=== PATIENT | male | born 1960 | race African-American/Black ===

== ENCOUNTER 2020-03-25 11:45 | Inpatient (IN) ==
[2020-03-25] MEDS ORDERED: MIDAZOLAM 2 MG/2 ML VIAL IV STA (12:35)
[2020-03-25] MEDS ORDERED: THIAMINE 200 MG/2 ML VIAL IV STA (12:45)
[2020-03-25] MEDS ORDERED: LACTATED RINGERS 1,000 ML IV ONE (12:46)
[2020-03-25] MEDS ORDERED: ONDANSETRON 4 MG/2 ML VIAL IV STA (12:46)
[2020-03-25 12:50] LABS: ABG Base Excess 0.9 MMOL/L (-2.5-2.5); ABG HCO3 25.1 MMOL/L (20-26); ABG PCO2 34.2 MM HG (35-48); ABG PH 7.457 (7.35-7.45); ABG PO2 79.7 MM HG (80-95); ABG TCO2 20.9 MMOL/L (23-27)
[2020-03-25 12:56] LABS: Basophils % 0.4 % (0.0-0.8); Eosinophils % 0.1 % (0.00-10.9); Hematocrit 40.1 VOL% (42.0-52.0); Hemoglobin 13.4 GM/DL (14.0-18.0); Immature Granulocytes % 0.7 %; Immature Granulocytes Absolute 0.05 #; Lymphocytes # 0.6 10*3/uL (1.4-4.0); Lymphocytes % 8.1 % (21.2-54.2); Mean Corpuscular HGB Conc 33.4 GM/DL (32-36); Mean Corpuscular Volume 90.9 FL (87-102); Mean Platelet Volume 10.7 FL (9.6-12.0); Monocytes % 9.3 % (1.7-12.7); Neutrophils % 81.4 % (38.7-73.9); Platelet Count 161 T/CUMM (130-400); Red Blood Count 4.41 MC/CUMM (3.8-5.5); Red Cell Distribution Width 12.8 % (9.3-17.3); White Blood Count 7.4 T/CUMM (4-12)
[2020-03-25 13:11] LABS: INR 1.1; PT Patient Result 11.5 SECS (9.8-11.9); Partial Thromboplastin Time 25.4 SECS (23.9-33.8)
[2020-03-25 13:24] LABS: Calcium 8.6 MG/DL (8.5-10.1); Osmolality,Calculated 278.1 MOS/KG (273-304); Potassium 3.8 MMOL/L (3.5-5.1); Total Protein 7.3 G/DL (6.4-8.3)
[2020-03-25 13:45] LABS: Lymphocytes 8 % (20-55); Platelet Estimate Adequate; Segmented Neutrophils 86 % (50-85); Total Cells Counted 100
[2020-03-25] MEDS ORDERED: LORazepam 2 MG/1 ML VIAL IV STA (14:02)
[2020-03-25 14:07] LABS: Bilirubin,Urine Negative (Negative); Blood, Urine Small mg/dL (Negative); Glucose,Urine (UA) >=500 mg/dL (Negative); Hyaline Casts,Urine 6 /LPF (0-3); Ketones,Urine Negative (Negative); Nitrite,Urine Negative (Negative); Protein,Urine Negative; RBC,Urine 1 /HPF (0-4); Urine Appearance CLEAR (Clear); Urine Color Yellow (Yellow); WBC,Urine 1 /HPF (0-6)
[2020-03-25] MEDS ORDERED: niCARdipine INJ 25 MG in SODIUM CHLORIDE 0.9% 240 ML IV PRN (14:59)
[2020-03-25] MEDS: SODIUM CHLORIDE 0.9% 1,000 ML IV SCH ×2 (16:25→23:27)
[2020-03-25] MEDS: MAGNESIUM SULF RIDER 4 GM in PREMIX 1 EACH IV SCH ×2 (17:41→21:07)
[2020-03-25] MEDS: LABETALOL 20 MG/4 ML SYRINGE IV PRN (20:08)
[2020-03-25] MEDS: ROSUVASTATIN 20 MG TABLET PO SCH (20:24)
[2020-03-25] MEDS: DIAZEPAM 5 MG TABLET PO PRN (20:24)
[2020-03-25] MEDS: ACETAMINOPHEN 325 MG TABLET PO PRN (23:27)
[2020-03-26] MEDS: MAGNESIUM SULF RIDER 4 GM in PREMIX 1 EACH IV SCH (01:13)
[2020-03-26 06:40] LABS: Basophils # 0.1 10*3/uL (0.0-0.2); Basophils % 0.9 % (0.0-0.8); Eosinophils # 0.1 10*3/uL (0.0-0.87); Eosinophils % 1.1 % (0.00-10.9); Hematocrit 40.4 VOL% (42.0-52.0); Hemoglobin 13.5 GM/DL (14.0-18.0); Immature Granulocytes % 0.4 %; Immature Granulocytes Absolute 0.02 #; Lymphocytes # 0.7 10*3/uL (1.4-4.0); Lymphocytes % 12.5 % (21.2-54.2); Mean Corpuscular HGB Conc 33.4 GM/DL (32-36); Mean Corpuscular Volume 91.6 FL (87-102); Mean Platelet Volume 11.4 FL (9.6-12.0); Monocytes % 12.1 % (1.7-12.7); Platelet Count 153 T/CUMM (130-400); Red Blood Count 4.41 MC/CUMM (3.8-5.5); Red Cell Distribution Width 12.9 % (9.3-17.3); White Blood Count 5.4 T/CUMM (4-12)
[2020-03-26 07:10] LABS: Alanine Aminotransferase 30 U/L (16-61); Albumin 2.7 G/DL (3.4-5.0); Alkaline Phosphatase 100 U/L (45-117); Aspartate Amino Transferase 38 U/L (0-37); Blood Urea Nitrogen 25 MG/DL (7-18); Calcium 8.5 MG/DL (8.5-10.1); Carbon Dioxide 22 MMOL/L (21-32); Estimated Glom Filtration Rate 66 ML/MIN; Glucose 93 MG/DL (74-106); Osmolality,Calculated 269.4 MOS/KG (273-304); Potassium 3.4 MMOL/L (3.5-5.1); Sodium 133 MMOL/L (136-145); Total Protein 7.6 G/DL (6.4-8.3); Troponin I < 0.015 NG/ML (0.00-0.045)
[2020-03-26] MEDS: SODIUM CHLORIDE 0.9% 1,000 ML IV SCH (12:33)
[2020-03-26] MEDS: POTASSIUM CHLORIDE 20 MEQ TABLET PO SCH ×3 (12:33→16:22)
[2020-03-26] MEDS: ASPIRIN 325 MG TABLET PO SCH (14:17)
[2020-03-26 15:49] LABS: Risk Ratio 2.8; VLDL CHOLESTEROL 20.2 MG/DL
[2020-03-26] MEDS: ROSUVASTATIN 20 MG TABLET PO SCH (21:24)
[2020-03-27 06:08] LABS: Basophils # 0.1 10*3/uL (0.0-0.2); Basophils % 1.1 % (0.0-0.8); Eosinophils # 0.1 10*3/uL (0.0-0.87); Eosinophils % 2.3 % (0.00-10.9); Hematocrit 35.9 VOL% (42.0-52.0); Hemoglobin 11.7 GM/DL (14.0-18.0); Immature Granulocytes % 0.6 %; Immature Granulocytes Absolute 0.03 #; Lymphocytes # 0.6 10*3/uL (1.4-4.0); Mean Corpuscular HGB Conc 32.6 GM/DL (32-36); Mean Corpuscular Volume 93.2 FL (87-102); Mean Platelet Volume 11.7 FL (9.6-12.0); Monocytes % 12.4 % (1.7-12.7); Neutrophils % 71.6 % (38.7-73.9); Platelet Count 154 T/CUMM (130-400); Red Blood Count 3.85 MC/CUMM (3.8-5.5); Red Cell Distribution Width 13.1 % (9.3-17.3); White Blood Count 5.3 T/CUMM (4-12)
[2020-03-27 06:27] LABS: Calcium 8.1 MG/DL (8.5-10.1); Osmolality,Calculated 280.5 MOS/KG (273-304); Potassium 3.6 MMOL/L (3.5-5.1)
[2020-03-27] MEDS: amLODIPine 5 MG TABLET PO SCH (15:05)
[2020-03-27] MEDS: ASPIRIN 325 MG TABLET PO SCH (15:05)
[2020-03-27] MEDS: ROSUVASTATIN 20 MG TABLET PO SCH (20:46)
[2020-03-28 05:52] LABS: Basophils # 0.1 10*3/uL (0.0-0.2); Basophils % 0.9 % (0.0-0.8); Eosinophils # 0.1 10*3/uL (0.0-0.87); Eosinophils % 2.1 % (0.00-10.9); Hematocrit 34.2 VOL% (42.0-52.0); Hemoglobin 11.6 GM/DL (14.0-18.0); Immature Granulocytes % 0.2 %; Immature Granulocytes Absolute 0.01 #; Lymphocytes # 0.9 10*3/uL (1.4-4.0); Lymphocytes % 15.9 % (21.2-54.2); Mean Corpuscular HGB Conc 33.9 GM/DL (32-36); Mean Corpuscular Volume 90.2 FL (87-102); Monocytes % 16.5 % (1.7-12.7); Neutrophils % 64.4 % (38.7-73.9); Platelet Count 155 T/CUMM (130-400); Red Blood Count 3.79 MC/CUMM (3.8-5.5); Red Cell Distribution Width 13.1 % (9.3-17.3); White Blood Count 5.3 T/CUMM (4-12)
[2020-03-28 06:11] LABS: Calcium 8.6 MG/DL (8.5-10.1); Osmolality,Calculated 275.7 MOS/KG (273-304); Potassium 3.5 MMOL/L (3.5-5.1)
[2020-03-28 06:20] LABS: Eosinophils 1 % (0-10); Lymphocytes 14 % (20-55); Platelet Estimate Adequate; Segmented Neutrophils 72 % (50-85); Total Cells Counted 100
[2020-03-28] MEDS: amLODIPine 5 MG TABLET PO SCH (09:11)
[2020-03-28] MEDS ORDERED: amLODIPine 5 MG TABLET PO ONE (11:22)
[2020-03-28] MEDS: ASPIRIN 325 MG TABLET PO SCH (16:20)
[2020-03-28] MEDS: ROSUVASTATIN 20 MG TABLET PO SCH (20:41)
[2020-03-29] MEDS: LABETALOL 20 MG/4 ML SYRINGE IV PRN ×2 (05:16→20:29)
[2020-03-29 06:08] LABS: Basophils # 0.1 10*3/uL (0.0-0.2); Basophils % 0.8 % (0.0-0.8); Eosinophils # 0.2 10*3/uL (0.0-0.87); Eosinophils % 2.6 % (0.00-10.9); Hematocrit 36.2 VOL% (42.0-52.0); Hemoglobin 11.8 GM/DL (14.0-18.0); Immature Granulocytes % 0.2 %; Immature Granulocytes Absolute 0.01 #; Lymphocytes # 0.8 10*3/uL (1.4-4.0); Lymphocytes % 13.6 % (21.2-54.2); Mean Corpuscular HGB Conc 32.6 GM/DL (32-36); Mean Corpuscular Volume 93.8 FL (87-102); Mean Platelet Volume 11.7 FL (9.6-12.0); Monocytes % 15.6 % (1.7-12.7); Neutrophils % 67.2 % (38.7-73.9); Platelet Count 180 T/CUMM (130-400); Red Blood Count 3.86 MC/CUMM (3.8-5.5); Red Cell Distribution Width 13.2 % (9.3-17.3); White Blood Count 6.1 T/CUMM (4-12)
[2020-03-29 06:39] LABS: Calcium 8.7 MG/DL (8.5-10.1); Osmolality,Calculated 275.7 MOS/KG (273-304); Potassium 3.4 MMOL/L (3.5-5.1)
[2020-03-29 06:47] LABS: Eosinophils 3 % (0-10); Hypochromasia 1+; Lymphocytes 14 % (20-55); Segmented Neutrophils 72 % (50-85); Total Cells Counted 100
[2020-03-29 06:48] LABS: Microcytosis Slight; Platelet Estimate Adequate
[2020-03-29] MEDS ORDERED: MAGNESIUM SULF RIDER 4 GM in PREMIX 1 EACH IV PRN (07:25)
[2020-03-29] MEDS: amLODIPine 10 MG TABLET PO SCH (09:16)
[2020-03-29] MEDS: MAGNESIUM SULF RIDER 2 GM in PREMIX 1 EACH IV PRN (09:17)
[2020-03-29] MEDS: POTASSIUM CHLORIDE 20 MEQ TABLET PO PRN (15:34)
[2020-03-29] MEDS: CLOPIDOGREL 75 MG TABLET PO SCH (15:34)
[2020-03-29] MEDS: ASPIRIN 325 MG TABLET PO SCH (15:35)
[2020-03-29] MEDS: ROSUVASTATIN 20 MG TABLET PO SCH (20:24)
[2020-03-29] MEDS: ACETAMINOPHEN 325 MG TABLET PO PRN (21:57)
[2020-03-29] MEDS: DIAZEPAM 5 MG TABLET PO PRN (23:30)
[2020-03-30 05:42] LABS: Basophils # 0.1 10*3/uL (0.0-0.2); Basophils % 0.8 % (0.0-0.8); Eosinophils # 0.1 10*3/uL (0.0-0.87); Eosinophils % 1.5 % (0.00-10.9); Hematocrit 36.5 VOL% (42.0-52.0); Hemoglobin 12.6 GM/DL (14.0-18.0); Immature Granulocytes % 0.5 %; Immature Granulocytes Absolute 0.03 #; Lymphocytes # 0.9 10*3/uL (1.4-4.0); Lymphocytes % 14.2 % (21.2-54.2); Mean Corpuscular HGB Conc 34.5 GM/DL (32-36); Mean Corpuscular Volume 89.7 FL (87-102); Mean Platelet Volume 11.5 FL (9.6-12.0); Monocytes % 15.6 % (1.7-12.7); Neutrophils % 67.4 % (38.7-73.9); Platelet Count 201 T/CUMM (130-400); Red Blood Count 4.07 MC/CUMM (3.8-5.5); Red Cell Distribution Width 13.1 % (9.3-17.3); White Blood Count 6.5 T/CUMM (4-12)
[2020-03-30 06:02] LABS: Calcium 8.7 MG/DL (8.5-10.1); Osmolality,Calculated 270.2 MOS/KG (273-304); Potassium 3.6 MMOL/L (3.5-5.1)
[2020-03-30 06:09] LABS: Eosinophils 1 % (0-10); Lymphocytes 17 % (20-55); Platelet Estimate Adequate; Segmented Neutrophils 64 % (50-85); Total Cells Counted 100
[2020-03-30] MEDS: amLODIPine 10 MG TABLET PO SCH (08:09)
[2020-03-30] MEDS: CLOPIDOGREL 75 MG TABLET PO SCH (08:09)
[2020-03-30] MEDS: POTASSIUM CHLORIDE 20 MEQ TABLET PO PRN (08:10)
[2020-03-30] MEDS: MAGNESIUM SULF RIDER 2 GM in PREMIX 1 EACH IV PRN (08:10)
[2020-03-30] MEDS ORDERED: MAGNESIUM SULF RIDER 4 GM in PREMIX 1 EACH IV ONE (09:56)
[2020-03-30] MEDS: MULTIVITAMIN (BEROCCA) TABLET PO SCH (12:24)
[2020-03-30] MEDS: FOLIC ACID 1 MG TABLET PO SCH (12:24)
[2020-03-30] MEDS: THIAMINE 100 MG TABLET PO SCH (12:25)
[2020-03-30] MEDS: ASPIRIN 325 MG TABLET PO SCH (15:42)
[2020-03-30] MEDS: ROSUVASTATIN 20 MG TABLET PO SCH (20:59)
[2020-03-30] MEDS: METOPROLOL TARTRATE 25 MG TABLET PO SCH (21:04)
[2020-03-30] MEDS: ENOXAPARIN 40 MG/0.4 ML SYRINGE SUBCUT SCH (21:06)
[2020-03-31 06:55] LABS: Basophils # 0.1 10*3/uL (0.0-0.2); Basophils % 0.7 % (0.0-0.8); Eosinophils # 0.1 10*3/uL (0.0-0.87); Eosinophils % 1.3 % (0.00-10.9); Hematocrit 35.6 VOL% (42.0-52.0); Hemoglobin 12.4 GM/DL (14.0-18.0); Immature Granulocytes % 0.4 %; Immature Granulocytes Absolute 0.03 #; Lymphocytes # 0.8 10*3/uL (1.4-4.0); Mean Corpuscular HGB Conc 34.8 GM/DL (32-36); Mean Corpuscular Volume 89.2 FL (87-102); Mean Platelet Volume 11.9 FL (9.6-12.0); Monocytes % 19.9 % (1.7-12.7); Neutrophils % 66.7 % (38.7-73.9); Platelet Count 228 T/CUMM (130-400); Red Blood Count 3.99 MC/CUMM (3.8-5.5); Red Cell Distribution Width 13.2 % (9.3-17.3); White Blood Count 7.1 T/CUMM (4-12)
[2020-03-31 07:15] LABS: Eosinophils 1 % (0-10); Hypochromasia 1+; Lymphocytes 15 % (20-55); Microcytosis Slight; Platelet Estimate Adequate; Segmented Neutrophils 58 % (50-85); Total Cells Counted 100
[2020-03-31 07:16] LABS: Calcium 8.7 MG/DL (8.5-10.1); Osmolality,Calculated 274.8 MOS/KG (273-304); Potassium 3.6 MMOL/L (3.5-5.1)
[2020-03-31] MEDS: amLODIPine 10 MG TABLET PO SCH (08:25)
[2020-03-31] MEDS: POTASSIUM CHLORIDE 20 MEQ TABLET PO PRN (08:25)
[2020-03-31] MEDS: THIAMINE 100 MG TABLET PO SCH (08:25)
[2020-03-31] MEDS: FOLIC ACID 1 MG TABLET PO SCH (08:25)
[2020-03-31] MEDS: MULTIVITAMIN (BEROCCA) TABLET PO SCH (08:25)
[2020-03-31] MEDS: CLOPIDOGREL 75 MG TABLET PO SCH (08:25)
[2020-03-31] MEDS: METOPROLOL TARTRATE 25 MG TABLET PO SCH ×2 (08:26→20:27)
[2020-03-31] MEDS: ACETAMINOPHEN 325 MG TABLET PO PRN (15:47)
[2020-03-31] MEDS: ENOXAPARIN 40 MG/0.4 ML SYRINGE SUBCUT SCH ×2 (20:27→20:29)
[2020-03-31] MEDS: ROSUVASTATIN 20 MG TABLET PO SCH (20:27)
[2020-04-01 06:02] LABS: Osmolality,Calculated 265.5 MOS/KG (273-304)
[2020-04-01] MEDS ORDERED: HEPARIN/NACL 0.9% 2 UNITS/ML 500 ML IV ONE (08:40)
[2020-04-01] MEDS ORDERED: NITROGLYCERIN DRIP 50 MG/250 ML BOTTLE IV ONE (08:40)
[2020-04-01] MEDS ORDERED: PHENYLEPHRINE DRIP 20 MG/250 ML PREMIX IV ONE (08:40)
[2020-04-01] MEDS ORDERED: ROPIVACAINE 0.5% 30 ML VIAL ONE (09:15)
[2020-04-01] MEDS ORDERED: LIDOCAINE 2% 5 ML VIAL ONE ×2 (09:19→10:16)
[2020-04-01] MEDS ORDERED: fentaNYL 100 MCG/2 ML VIAL ONE (10:10)
[2020-04-01] MEDS ORDERED: propofoL 200 MG/20 ML VIAL IV ONE (10:15)
[2020-04-01] MEDS ORDERED: ETOMIDATE 40 MG/20 ML VIAL IV ONE (10:15)
[2020-04-01] MEDS ORDERED: ROCURONIUM 50 MG/5 ML VIAL IV ONE (10:16)
[2020-04-01] MEDS ORDERED: LIDOCAINE 1% 5 ML VIAL ONE (10:24)
[2020-04-01] MEDS ORDERED: HEPARIN 5,000 UNIT/1 ML VIAL ONE (10:37)
[2020-04-01] MEDS ORDERED: LIDOCAINE 1% 20 ML VIAL ONE (10:37)
[2020-04-01] MEDS ORDERED: SODIUM CHLORIDE 0.9% 1,000 ML IV SCH (11:00)
[2020-04-01] MEDS ORDERED: LACTATED RINGERS 1,000 ML IV SCH (11:00)
[2020-04-01] MEDS ORDERED: SUGAMMADEX 200 MG/2 ML VIAL IV ONE (12:40)
[2020-04-01] MEDS ORDERED: HEPARIN 10,000 UNIT/10 ML VIAL ONE (12:49)
[2020-04-01] MEDS ORDERED: PROTAMINE SULFATE 50 MG/5 ML VIAL IV ONE (12:49)
[2020-04-01] MEDS ORDERED: ONDANSETRON 4 MG/2 ML VIAL ONE (12:58)
[2020-04-01] MEDS ORDERED: DEXTROSE 50% 25 GM/50 ML VIAL IV PRN (13:08)
[2020-04-01] MEDS ORDERED: HYDROmorphone 2 MG/1 ML VIAL IV PRN ×2 (13:08→13:25)
[2020-04-01] MEDS ORDERED: PROMETHAZINE 25 MG/1 ML VIAL IM PRN (13:08)
[2020-04-01] MEDS ORDERED: ONDANSETRON 4 MG/2 ML VIAL IV PRN ×2 (13:08→13:25)
[2020-04-01] MEDS ORDERED: NALOXONE 0.4 MG/ML VIAL IV PRN (13:08)
[2020-04-01] MEDS ORDERED: oxyCODONE/ACETAMINOPHEN 5-325 MG TABLET PO PRN ×2 (13:08)
[2020-04-01] MEDS ORDERED: GLUCAGON 1 MG VIAL IM PRN (13:08)
[2020-04-01] MEDS ORDERED: NITROPRUSSIDE 100 MG in DEXTROSE 5% 250 ML IV SCH (13:30)
[2020-04-01] MEDS ORDERED: PHENYLEPHRINE DRIP 40 MG/250 ML PREMIX IV SCH (13:30)
[2020-04-01] MEDS: THIAMINE 100 MG TABLET PO SCH (13:43)
[2020-04-01] MEDS: MULTIVITAMIN (BEROCCA) TABLET PO SCH (13:43)
[2020-04-01] MEDS: METOPROLOL TARTRATE 25 MG TABLET PO SCH ×2 (13:43→21:17)
[2020-04-01] MEDS: amLODIPine 10 MG TABLET PO SCH (13:43)
[2020-04-01] MEDS: ASPIRIN EC 81 MG TABLET PO SCH (13:43)
[2020-04-01] MEDS: FOLIC ACID 1 MG TABLET PO SCH (13:43)
[2020-04-01] MEDS: CLOPIDOGREL 75 MG TABLET PO SCH (13:43)
[2020-04-01] MEDS: LACTATED RINGERS 1,000 ML IV SCH ×2 (14:15→23:28)
[2020-04-01] MEDS: HYDROmorphone 2 MG/1 ML VIAL IV PRN ×3 (15:30→21:17)
[2020-04-01] MEDS: ROSUVASTATIN 20 MG TABLET PO SCH (21:16)
[2020-04-01] MEDS: ENOXAPARIN 40 MG/0.4 ML SYRINGE SUBCUT SCH (21:17)
[2020-04-02 05:25] LABS: Basophils # 0.1 10*3/uL (0.0-0.2); Basophils % 0.7 % (0.0-0.8); Eosinophils % 0.4 % (0.00-10.9); Hematocrit 34.3 VOL% (42.0-52.0); Hemoglobin 11.1 GM/DL (14.0-18.0); Immature Granulocytes % 0.3 %; Immature Granulocytes Absolute 0.03 #; Lymphocytes # 0.7 10*3/uL (1.4-4.0); Lymphocytes % 8.2 % (21.2-54.2); Mean Corpuscular HGB Conc 32.4 GM/DL (32-36); Mean Platelet Volume 11.7 FL (9.6-12.0); Monocytes % 14.6 % (1.7-12.7); Neutrophils % 75.8 % (38.7-73.9); Platelet Count 292 T/CUMM (130-400); Red Blood Count 3.69 MC/CUMM (3.8-5.5); Red Cell Distribution Width 13.6 % (9.3-17.3); White Blood Count 9.1 T/CUMM (4-12)
[2020-04-02 05:49] LABS: Calcium 8.8 MG/DL (8.5-10.1); Osmolality,Calculated 268.4 MOS/KG (273-304); Potassium 4.6 MMOL/L (3.5-5.1)
[2020-04-02] MEDS: amLODIPine 10 MG TABLET PO SCH (08:04)
[2020-04-02] MEDS: ASPIRIN EC 81 MG TABLET PO SCH (08:04)
[2020-04-02] MEDS: THIAMINE 100 MG TABLET PO SCH (08:04)
[2020-04-02] MEDS: METOPROLOL TARTRATE 25 MG TABLET PO SCH ×2 (08:04→21:22)
[2020-04-02] MEDS: MULTIVITAMIN (BEROCCA) TABLET PO SCH (08:04)
[2020-04-02] MEDS: FOLIC ACID 1 MG TABLET PO SCH (08:05)
[2020-04-02] MEDS: CLOPIDOGREL 75 MG TABLET PO SCH (08:05)
[2020-04-02] MEDS ORDERED: ASPIRIN EC 81 MG TABLET PO SCH (09:00)
[2020-04-02] MEDS ORDERED: CLOPIDOGREL 75 MG TABLET PO SCH (09:00)
[2020-04-02] MEDS: ACETAMINOPHEN 325 MG TABLET PO PRN ×2 (13:01→18:17)
[2020-04-02] MEDS: ROSUVASTATIN 20 MG TABLET PO SCH (21:22)
[2020-04-02] MEDS: ENOXAPARIN 40 MG/0.4 ML SYRINGE SUBCUT SCH (21:22)
[2020-04-03] MEDS: MULTIVITAMIN (BEROCCA) TABLET PO SCH (09:11)
[2020-04-03] MEDS: ACETAMINOPHEN 325 MG TABLET PO PRN (09:11)
[2020-04-03] MEDS: FOLIC ACID 1 MG TABLET PO SCH (09:11)
[2020-04-03] MEDS: METOPROLOL TARTRATE 25 MG TABLET PO SCH ×2 (09:12→21:17)
[2020-04-03] MEDS: amLODIPine 10 MG TABLET PO SCH (09:13)
[2020-04-03] MEDS: CLOPIDOGREL 75 MG TABLET PO SCH (09:13)
[2020-04-03] MEDS: ASPIRIN EC 81 MG TABLET PO SCH (09:13)
[2020-04-03] MEDS: THIAMINE 100 MG TABLET PO SCH (09:13)
[2020-04-03 18:31] LABS: Bacteria,Urine Occasional /HPF (Few); Bilirubin,Urine Negative (Negative); Blood, Urine Small mg/dL (Negative); Glucose,Urine (UA) Negative (Negative); Ketones,Urine 5 mg/dL (Negative); Mucus,Urine Occasional /LPF (Occasional); Nitrite,Urine Negative (Negative); Protein,Urine 30 MG/DL; RBC,Urine 2 /HPF (0-4); Urine Appearance CLEAR (Clear); Urine Color Yellow (Yellow); Urine Specific Gravity 1.013 (1.001-1.035); WBC,Urine 3 /HPF (0-6)
[2020-04-03] MEDS: ROSUVASTATIN 20 MG TABLET PO SCH (21:16)
[2020-04-04 07:45] LABS: Basophils # 0.1 10*3/uL (0.0-0.2); Basophils % 0.8 % (0.0-0.8); Eosinophils # 0.1 10*3/uL (0.0-0.87); Eosinophils % 1.1 % (0.00-10.9); Hematocrit 37.7 VOL% (42.0-52.0); Hemoglobin 12.7 GM/DL (14.0-18.0); Immature Granulocytes % 0.3 %; Immature Granulocytes Absolute 0.03 #; Lymphocytes # 0.8 10*3/uL (1.4-4.0); Mean Corpuscular HGB Conc 33.7 GM/DL (32-36); Mean Corpuscular Volume 89.3 FL (87-102); Mean Platelet Volume 10.9 FL (9.6-12.0); Monocytes % 11.6 % (1.7-12.7); Neutrophils % 77.2 % (38.7-73.9); Platelet Count 383 T/CUMM (130-400); Red Blood Count 4.22 MC/CUMM (3.8-5.5); Red Cell Distribution Width 12.7 % (9.3-17.3); White Blood Count 8.8 T/CUMM (4-12)
[2020-04-04 08:19] LABS: Albumin 2.4 G/DL (3.4-5.0); Bilirubin,Total 0.5 MG/DL (0.2-1.0); Calcium 9.4 MG/DL (8.5-10.1); Osmolality,Calculated 266.4 MOS/KG (273-304); Potassium 3.8 MMOL/L (3.5-5.1); Total Protein 7.9 G/DL (6.4-8.3)
[2020-04-04] MEDS: FOLIC ACID 1 MG TABLET PO SCH (09:13)
[2020-04-04] MEDS: THIAMINE 100 MG TABLET PO SCH (09:14)
[2020-04-04] MEDS: METOPROLOL TARTRATE 25 MG TABLET PO SCH (09:14)
[2020-04-04] MEDS: MULTIVITAMIN (BEROCCA) TABLET PO SCH (09:14)
[2020-04-04] MEDS: ASPIRIN EC 81 MG TABLET PO SCH (09:14)
[2020-04-04] MEDS: amLODIPine 10 MG TABLET PO SCH (09:14)
[2020-04-04] MEDS: CLOPIDOGREL 75 MG TABLET PO SCH (09:14)
[2020-04-04 12:33] VITALS: BP 125/86
== END 2020-04-04 16:01 | disposition home or self-care (01) | DRG 38 ==
LOC: N.ED 11:45 → SUATTDRO 14:55 → N.EDINP 14:55 → N.ICU 17:54 → N.5E 03-26 11:32 → N.ICU 04-01 14:04 → N.TELEN 04-02 14:19
PROVIDERS: ADMIT Internal Medicine; ATTEND Internal Medicine Geriatric Medicine